=== PATIENT | female | born 1940 ===

== ENCOUNTER 2022-08-05 08:59 | Outpatient (REF) | payer MEDICARE, SELFPAY ==
[2022-08-05 11:40] LABS: Appearance Urine Cloudy; Color Urine Yellow; Glucose Urine UA Negative (Negative); Leukocyte Esterase Urine Moderate (2+) (Negative); Nitrite Urine Negative (Negative); PH 5.5 (5.0-9.0); UMIC TRIGGER UA YES; Urine Blood Large (3+) (Negative); Urine Ketones Negative (Negative); Urine Protein 30 (1+) mg/dL (Neg-Trace)
[2022-08-05 12:20] LABS: Bacteria Urine 4+ (None Seen); Hyaline Casts Urine 0-2 /LPF (0-2); RBC Urine >20 /HPF (0-2); WBC Urine >50 /HPF (0-5)
== END 2022-08-05 09:00 | disposition home or self-care (01) ==
LOC: HO.LAB 08:59
PROVIDERS: Visit Provider Family Medicine
DX: N39.0 Urinary tract infection, site not specified (principal)
CPT/HCPCS: 81001; 87086; 87088; 87186